=== PATIENT | female | born 1945 | race Caucasian/White ===

== ENCOUNTER 2020-07-13 07:41 | Outpatient (CLI) | payer MEDICARE | END 2020-07-13 23:59 | disposition home or self-care (01) | LOC: ROC 07:41 | PROVIDERS: ATTEND Radiology Radiation Oncology | DX: C50.412 Malignant neoplasm of upper-outer quadrant of left female breast (principal); G31.1 Senile degeneration of brain, not elsewhere classified; E78.00 Pure hypercholesterolemia, unspecified | CPT/HCPCS: 99204; G0463 ==

== ENCOUNTER 2020-07-13 09:11 | Emergency (ER) | payer MEDICARE ==
[~2020-07-13] VITALS: Ht 162.6 cm; Wt 77.5 kg
[2020-07-13 09:23] VITALS: BP 131/71
--- NOTE | 2020-07-13 10:15 | NUR ---
COMMERCIAL GLAZIER: PT TO ROOM FROM [facility]
[2020-07-13] MEDS ORDERED: DIPH,PERTUSS(ACELL),TET VAC/PF 0.5 ML IM-VACC ONE ×2 (11:30→11:36)
== END 2020-07-13 12:10 | disposition home or self-care (01) ==
LOC: ED 10:57
DX: S09.90XA Unspecified injury of head, initial encounter (principal); S89.91XA Unspecified injury of right lower leg, initial encounter; E78.00 Pure hypercholesterolemia, unspecified; W01.0XXA Fall on same level from slipping, tripping and stumbling without subsequent striking against object, initial encounter; Y93.89 Activity, other specified; Y92.098 Other place in other non-institutional residence as the place of occurrence of the external cause; Y99.8 Other external cause status
CPT/HCPCS: 70450; 90471; 90715; 99284

== ENCOUNTER 2020-07-27 07:29 | Observation (INO) | payer MEDICARE ==
[~2020-07-27] VITALS: Ht 157.5 cm; Wt 78.0 kg
[2020-07-27 07:59] VITALS: BP 134/62
[2020-07-27] MEDS: SODIUM CHLORIDE 0.9% 1,000 ML IV SCH ×2 (08:00→15:45)
[2020-07-27] MEDS ORDERED: VANCOMYCIN PMX 1GM/200ML 200 ML IVPB SCH (08:00)
[2020-07-27] MEDS ORDERED: ANAS1TAB49 PO (08:10)
[2020-07-27] MEDS ORDERED: APIX5TAB PO (08:10)
[2020-07-27] MEDS ORDERED: VERA240T10 PO (08:10)
[2020-07-27] MEDS ORDERED: SERT100T32 PO (08:10)
[2020-07-27] MEDS ORDERED: CHOL10003 PO (08:12)
[2020-07-27] MEDS ORDERED: FENTANYL PF 100 MCG/2ML ONE ×2 (09:26→10:54)
[2020-07-27] MEDS ORDERED: LIDOCAINE 2%, 20ML ONE (09:26)
[2020-07-27] MEDS ORDERED: MIDAZOLAM 1 MG/ML, 5ML ONE (09:26)
[2020-07-27] MEDS ORDERED: VANCOMYCIN 500 MG ONE (09:27)
[2020-07-27] MEDS ORDERED: DIPHENHYDRAMINE 50 MG/ML, 1ML ONE (10:26)
[2020-07-27] MEDS ORDERED: HYDROcodone/APAP 5/325 TABLET PO PRN (11:30)
[2020-07-27] MEDS ORDERED: HOLD MEDICATION MC PRN (11:30)
[2020-07-27 14:50] VITALS: BP 101/54
[2020-07-27 20:10] VITALS: BP 130/78
[2020-07-27] MEDS: SODIUM CHLORIDE FLUSH 10ML SYR IVF SCH (20:20)
[2020-07-28 02:00] VITALS: BP 125/82
[2020-07-28 07:40] VITALS: BP 145/78
[2020-07-28] MEDS ORDERED: CHOLECALCIFEROL 1,000 UNIT TABLET PO SCH (09:00)
[2020-07-28] MEDS: SODIUM CHLORIDE FLUSH 10ML SYR IVF SCH (09:00)
[2020-07-28] MEDS ORDERED: SERTRALINE 100MG TABLET PO SCH (09:00)
[2020-07-28] MEDS ORDERED: VERAPAMIL ER 240MG TABLET.ER PO SCH (09:00)
[2020-07-28] MEDS ORDERED: ANASTROZOLE 1 MG TABLET PO SCH (09:00)
[2020-07-28] MEDS ORDERED: FLU VACC QS2020-21(6MOS UP)/PF 60MCG/0.5 ML SYR IM-VACC ONE (09:30)
== END 2020-07-28 11:07 | disposition home or self-care (01) ==
LOC: CACL 07:29 → 5SO 11:19 → CACL 18:09 → 5SO 07-28 00:13 → DCLOUNGE 07-28 10:45
PROVIDERS: ADMIT Internal Medicine Clinical Cardiac Electrophysiology; ATTEND Internal Medicine Clinical Cardiac Electrophysiology
DX: I49.5 Sick sinus syndrome (principal); I48.0 Paroxysmal atrial fibrillation; I10 Essential (primary) hypertension; J45.909 Unspecified asthma, uncomplicated; Z79.899 Other long term (current) drug therapy; Z79.01 Long term (current) use of anticoagulants; Z88.0 Allergy status to penicillin; Z95.0 Presence of cardiac pacemaker; Z23 Encounter for immunization
CPT/HCPCS: 33208; 33233; 71045; 71046; 90686; 99156; 99157; C1779; C1785; C1892; G0008; G0378; J1200; J2250; J3010; J3370; J3490; Q9967

== ENCOUNTER → 2020-08-25 | Outpatient (CLI) | payer MEDICARE ==
[~2020-08-25] MED LIST: ANAS1TAB49 PO; APIX5TAB PO; CHOL10003 PO; SERT100T32 PO; VERA240T10 PO
== END | disposition home or self-care (01) ==
LOC: CFH 10:15
PROVIDERS: ATTEND Internal Medicine Hematology & Oncology
DX: C50.812 Malignant neoplasm of overlapping sites of left female breast (principal); M85.89 Other specified disorders of bone density and structure, multiple sites
CPT/HCPCS: 77080

== ENCOUNTER → 2020-09-05 | Outpatient (CLI) | payer MEDICARE | END | disposition home or self-care (01) | LOC: CFH 13:51 | PROVIDERS: ATTEND Radiology Radiation Oncology | DX: C50.412 Malignant neoplasm of upper-outer quadrant of left female breast (principal); N63.32 Unspecified lump in axillary tail of the left breast ==